=== PATIENT | male | born 1980 | race Caucasian/White ===

== ENCOUNTER 2021-01-21 08:28 | Emergency (ER) | payer OTHER ==
[~2021-01-21] VITALS: Ht 177.8 cm; Wt 86.6 kg
[2021-01-21] MEDS ORDERED: ROPINIROLE HCL2 MG PO (08:48)
[2021-01-21] MEDS ORDERED: OMEPRAZOLE40 MG PO (08:48)
[2021-01-21] MEDS ORDERED: IRBESARTAN300 MG PO (08:48)
[2021-01-21] MEDS ORDERED: GABAPENTIN600 MG PO (08:48)
[2021-01-21] MEDS ORDERED: TESTOSTERO200 MG/1 M IM (08:49)
[2021-01-21] MEDS ORDERED: BUPRENORPHINE-1 EACH SL (08:49)
[2021-01-21] MEDS ORDERED: AMITRIPTYLINE H50 MG PO (08:50)
[2021-01-21] MEDS ORDERED: DOXYCYCLINE HY100 MG PO (10:07)
[2021-01-21] MEDS ORDERED: PREDNISONE20 MG PO (10:07)
[2021-01-21] MEDS ORDERED: TESSALON PERLE100 MG PO (10:08)
== END 2021-01-21 10:35 | disposition home or self-care (01) ==
LOC: ED 08:28
DX: J40 Bronchitis, not specified as acute or chronic (principal); R59.0 Localized enlarged lymph nodes; Z20.822 Contact with and (suspected) exposure to COVID-19; Z79.899 Other long term (current) drug therapy
CPT/HCPCS: 71045; 99283-25; C9803; U0003

== ENCOUNTER 2021-03-25 12:20 | Emergency (ER) | payer OTHER ==
[~2021-03-25] VITALS: Ht 177.8 cm; Wt 86.2 kg
[~2021-03-25 12:20] MED LIST: AMITRIPTYLINE H50 MG PO; BUPRENORPHINE-1 EACH SL; DOXYCYCLINE HY100 MG PO; GABAPENTIN600 MG PO; IRBESARTAN300 MG PO; OMEPRAZOLE40 MG PO; PREDNISONE20 MG PO; ROPINIROLE HCL2 MG PO; TESSALON PERLE100 MG PO; TESTOSTERO200 MG/1 M IM
[2021-03-25] MEDS ORDERED: LISINOPRIL20 MG PO (12:24)
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
== END 2021-03-25 14:08 | disposition home or self-care (01) ==
LOC: ED 12:20
DX: S01.01XA Laceration without foreign body of scalp, initial encounter (principal); W22.8XXA Striking against or struck by other objects, initial encounter; Y99.0 Civilian activity done for income or pay; I10 Essential (primary) hypertension; K21.9 Gastro-esophageal reflux disease without esophagitis; Z79.899 Other long term (current) drug therapy
CPT/HCPCS: 12002; 99283-25; A9270

== ENCOUNTER 2022-07-07 11:55 | Emergency (ER) | payer OTHER ==
[~2022-07-07] VITALS: Ht 177.8 cm; Wt 95.2 kg
[~2022-07-07 11:55] MED LIST changes: +LISINOPRIL20 MG PO
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
[2022-07-07] MEDS ORDERED: DULOXETINE HCL30 MG PO (12:09)
[2022-07-07] MEDS ORDERED: TRAZODONE HCL100 MG PO (12:09)
[2022-07-07] MEDS ORDERED: NAPROSYN500 MG PO (12:31)
== END 2022-07-07 12:51 | disposition home or self-care (01) ==
LOC: ED 11:55
DX: S83.92XA Sprain of unspecified site of left knee, initial encounter (principal); I10 Essential (primary) hypertension; K21.9 Gastro-esophageal reflux disease without esophagitis; Z79.899 Other long term (current) drug therapy; W14.XXXA Fall from tree, initial encounter
CPT/HCPCS: 73560; 99283-25

== ENCOUNTER 2023-11-14 13:39 | Emergency (ER) | payer OTHER ==
[~2023-11-14] VITALS: Ht 177.8 cm; Wt 77.3 kg
[~2023-11-14 13:39] MED LIST changes: +CYCLOBENZAPRINE10 MG PO; +DULOXETINE HCL30 MG PO; +NAPROSYN500 MG PO; +TRAZODONE HCL100 MG PO
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
[2023-11-14 14:37] VITALS: BP 126/79
== END 2023-11-14 14:37 | disposition home or self-care (01) ==
LOC: ED 13:39
DX: G25.81 Restless legs syndrome (principal); I10 Essential (primary) hypertension; Z79.899 Other long term (current) drug therapy
CPT/HCPCS: 99283

== ENCOUNTER 2024-09-06 16:49 | Emergency (ER) | payer OTHER ==
[~2024-09-06] VITALS: Ht 177.8 cm; Wt 93.5 kg
[2024-09-06] MEDS ORDERED: PRAMIPEXOLE0.125 MG PO (17:06)
[2024-09-06] MEDS ORDERED: LIDOCAINE HCL 1% 5 ML SDV SUB-Q ONE (18:45)
[2024-09-06 19:01] VITALS: BP 144/109
== END 2024-09-06 19:01 | disposition home or self-care (01) ==
LOC: ED 16:49
DX: S67.192A Crushing injury of right middle finger, initial encounter (principal); S61.212A Laceration without foreign body of right middle finger without damage to nail, initial encounter; I10 Essential (primary) hypertension; Z79.899 Other long term (current) drug therapy; W23.0XXA Caught, crushed, jammed, or pinched between moving objects, initial encounter
CPT/HCPCS: 64450; 73140; 99282-25; J3490